=== PATIENT | female | born 1980 | race Caucasian/White ===

== ENCOUNTER 2024-01-14 19:29 | Outpatient (REF) | payer BC, SELFPAY | END 2024-01-14 19:30 | disposition home or self-care (01) | LOC: LAB 19:29 | PROVIDERS: Visit Provider Obstetrics & Gynecology | DX: Z01.419 Encounter for gynecological examination (general) (routine) without abnormal findings (principal) | CPT/HCPCS: 88175 ==

== ENCOUNTER 2025-02-03 19:27 | Outpatient (REF) | payer SELFPAY ==
--- OUTSIDE RECORDS SUMMARY | 2025-02-03 19:30 | XMS_ITS | CCD ---
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 Medications List tirzepatide (Mounjaro 15 mg/0.5 mL subcutaneous solution) Contact prescribing physician if questions or concerns acetaminophen (Tylenol) aspirin (aspirin 81 mg Oral EC Tab) docusate (Colace) fluoxetine (FLUoxetine 40 mg Cap) hydrochlorothiazide (hydrochlorothiazide 25 mg Tab) ibuprofen (ibuprofen 800 mg Tab) methocarbamol oxycodone Procedures Performed Carpal tunnel syndrome of right wrist (2011), Cholecystectomy (2005), Arthroscopy of knee (1995), Reconstruction of anterior abdominal wall, Repair of ventral hernia. Discharge Vitals Heart Rate (Peripheral) 78 Respiratory Rate 16 Blood Pressure 133/84 Height 162 cm Height 64 in Weight 99.4 kg Weight 218.68 lb BMI 37.88 What to do next Scheduled Follow-Up Appointments Saturday 10:15 AM EST With: Erasto Smith MD Where: [facility] Medicine [place] [facility] Medicine Office/Clini c Noteon 11-04-2023 Family Medicine Office/Clinic Note Family Medicine Office/Clinic Note HPI Staff Jennifer is a 43 year old female presenting for medication refill Patient is here for follow up on hypertension. How often are you checking your blood pressure? Couple times a week What are your average readings? _120s over 70s Follow up for Mental Status: Medication adherence- Yes, takes medication as prescribed Medication refill needed: _ Suicidal thoughts-Not at this time Most recent JESSICA: 3 Most recent PHQ: 8 Patient is here for follow up on Diabetes. How often are you checking your blood sugars? 0 times per day What are your average readings? NA Paresthesias, Ulcerations or sores? no Lisinopril, aspirin, statin therapy? Yes Foot Exam: NA Eye Exam: last year. Last A1c: Hgb A1C %: 5.1 % (01/07/23 10:28:00) 4.6 recently @ [facility] (getting records now) Questions/Concerns: Refills on meds History of Present Illness - Here for follow up and discuss meds - Pt recently had a hernia repair. - Pain is improving. Review of Systems PHQ Score Initial Depression Screen Score: 0 SCORE Physical Exam Vitals & Measurements HR: 78(Peripheral) RR: 16 BP: 133/84 HT: 64 in HT: 162 cm WT: 99.4 kg WT: 218.68 lb BMI: 37.88 General: alert, no acute distress ENMT: oral mucosa moist, Cardiovascular: regular rate and rhythm, normal peripheral perfusion Respiratory: Lungs CTA, respirations non labored Extremities: no deformity, no trauma Neurological: oriented x 4, LOC appropriate for age, CN II-XII intact, motor strength equal & normal bilaterally, speech normal Abdomen: Soft, Nontender, Non-distended, + BS, Belly Binder in place. Suture sites are healing well. Assessment/Plan 1. Type 2 diabetes mellitus without complication, without long-term current use of insulin (E11.9: Type 2 diabetes mellitus without complications) - Doing well with the mounjaro. - At goal. 2. Primary hypertension (I10: Essential (primary) hypertension) - At goal. - Continue on HCTZ 3. Depression with anxiety (F41.8: Other specified anxiety disorders) - At goal. - Continue meds as before 4. H/O hernia repair (Z98.890: Other specified postprocedural states) - Doing well. - Pain is controlled - Suture sites are healing well. Personal history of other diseases of the digestive system (Z87.19: Personal history of other diseases of the digestive system) Orders: lidocaine topical, See Instructions, 30 patch(es), Refill(s) 0, USE 1 PATCH EXTERNALLY ONCE DAILY LEAVE ON FOR 12 HOURS THEN REMOVE FOR 12 HOURS, [facility], 162, cm, 09/18/22 9:06:00 EDT, Height/Length Dosing, 103, kg, 09/18/22 9:06:00 EDT, Weight Dosing tirzepatide, See Instructions, INJECT 1 SYRINGE SUBCUTANEOUSLY ONCE A WEEK, # 12 mL, Refills(s) 1, [facility], 162, cm, 11/04/23 10:01:00 EDT, Height/Length Dosing, 99.4, kg, 11/04/23 10:01:00 EDT, Weight Dosing Follow-up No qualifying data available Patient Education Hypertension, Adult Problem List/Past Medical History Ongoing Depression with anxiety H/O hernia repair Primary hypertension Type 2 diabetes mellitus without complication, without long-term current use of insulin Historical No qualifying data Procedure/Surgical History Carpal tunnel syndrome of right wrist (2011), Cholecystectomy (2005), Arthroscopy of knee (1995), Reconstruction of anterior abdominal wall, Repair of ventral hernia. Medications aspirin 81 mg Oral EC Tab, 81 mg= 1 tab(s), Oral, Daily Colace, 100 mg, Oral, BID, PRN FLUoxetine 40 mg Cap, See Instructions hydrochlorothiazide 25 mg Tab, See Instructions ibuprofen 800 mg Tab, 800 mg= 1 tab(s), Oral, q6hr methocarbamol, 500 mg, Oral, TID, PRN Mounjaro 15 mg/0.5 mL subcutaneous solution, See Instructions, 1 refills oxycodone, 5 mg, Oral, q6hr, PRN Tylenol, 1000 mg, Oral, q6hr, PRN Allergies Flagyl (Hives) penicillin (Hives) Social History Alcohol - Low Risk, 09/04/2022 Current, 1-2 times per month, 09/04/2022 Substance Abuse - Denies Substance Abuse, 01/08/2022 Household substance abuse concerns: No., 09/04/2022 Tobacco - Denies Tobacco Use, 09/04/2022 Never (less than 100 in lifetime) Tobacco Use:. Never Smokeless Tobacco Use:. Household tobacco concerns: No., 11/04/2023 Family History Diabetes mellitus type 2: Mother and Father. Stroke: Mother. Immunizations Vaccine Date Status Comments influenza virus vaccine, inactivated - Not Given Postpone due to refusal influenza virus vaccine, inactivated - Not Given Patient Refuses SARS-CoV-2 (COVID-19) mRNA BNT-162b2 vax 08/02/2020 Recorded SARS-CoV-2 (COVID-19) mRNA-1273 vaccine 07/05/2020 Recorded diphtheria/pertussis , acel/tetanus adult 06/02/2020 Recorded influenza virus vaccine, inactivated 02/17/2014 Recorded Normal [facility] Comment on above: Result Comment: Elec tronically Signed By: Erasto Smith MD\.br\Date and Time Signed: 11/04/23 10:17 EDT [facility] 10-25-19 [facility] Case Information Case Priority: None Programs: -- Referral Source: Stand Grinder Referral Reason: Care coordination Case Type: Transition Care Management Risk Score: -- Case Status: Enrolled (October 25, 2023) Date Assigned: October 25, 2023 Assigned By: Donald Najera Date Enrolled: October 25, 2023 Assigned Primary Personnel: Donald Najera Assigned Secondary Personnel: -- Case Physician: Erasto Smith MD Problems Ongoing Depression with anxiety Primary hypertension Type 2 diabetes mellitus without complication, without long-term current use of insulin Historical No qualifying data Procedure/Surgical History Carpal tunnel syndrome of right wrist (2011), Cholecystectomy (2005), Arthroscopy of knee (1995). Home Medications aspirin 81 mg Oral EC Tab, 81 mg= 1 tab(s), Oral, Daily FLUoxetine 40 mg Cap, See Instructions hydrochlorothiazide 25 mg Tab, See Instructions hydrochlorothiazide 25 mg Tab, See Instructions ibuprofen 800 mg Tab, 800 mg= 1 tab(s), Oral, q6hr lidocaine Top 5% film Patch, See Instructions, Not taking Mounjaro 15 mg/0.5 mL subcutaneous solution, See Instructions Allergies Flagyl (Hives) penicillin (Hives) Social History Alcohol - Low Risk, 09/04/2022 Current, 1-2 times per month, 09/04/2022 Substance Abuse - Denies Substance Abuse, 01/08/2022 Household substance abuse concerns: No., 09/04/2022 Tobacco - Denies Tobacco Use, 09/04/2022 Never (less than 100 in lifetime) Tobacco Use:. Never Smokeless Tobacco Use:. Household tobacco concerns: No., 01/07/2023 Family History Diabetes mellitus type 2: Mother and Father. Stroke: Mother. Screenings and Assessments 10/25/23 10:52:00 Result Name Value Comment Phone Call Monitoring Consent Agreed to continue call Phone Verification Patient Information Full name, street address and date of verified CM Program Enrollment Provides verbal consent for enrollment Goals and Interventions Care Plan Progress Note Admit Date: 10/18/23 [facility] Date of Discharge: 10/22/23 Follow-up appointment scheduled? no, heading up to [facility] now for Surgical f/u, will contact office after to arrange for PCP f/u Did you understand your discharge instructions? yes Are you able to follow them? yes Did you receive new medications? yes, Colace 100 mg BID PRN, acetaminophen 500 2 tabs q6hr PRN, methocarbamol 500 mg TID PRN, oxycodone 5 mg q6hr PRN, HCTZ was stopped (d/t low BP 80/60- per pt) Have you filled the Rx's? yes Are you taking them as prescribed? yes Are you having difficulty eating or swallowing your pills? no Are you having any stomach upset, diarrhea or constipation? no How are you sleeping?'I'm not sleeping' reports gas pains from surgery Are you having any pain? reports gas pains from surgery Do you have everything you need at home to care for yourself? yes Do you have Home Health? no Spoke with patient for initial Transitional Care Management Program call. Readmission risk not available. Reviewed discharge instructions and diagnosis of: ventral hernia repair, s/p repair of ventral hernia, acute post op pain, electrolyte imbalance, obesity, HTN, anxiety, DM, BOBY.Patient underwent laparoscopic ventral hernia repair with mesh on 10/17. Medications reviewed and updated with patient, d/c list, and ehr. PCP is currently out of office, no POV scheduled at this time. Medication reconciliation will need to be completed at OV. Reviewed purpose and side effects of new medications with patient. Patient states she is doing 'horrible.' Notes she tried to be a 'badass' and not take any pain medication following discharge and now she is paying for it. Patient is currently on her way now to follow up with surgeon and discuss pain. Patient reports she has some gas pains from anesthesia as well. Reports feeling bloated. She did try gas x and that was not helpful. Patient reports she had normal BM today. Patient notes other than gas pain, she doesn't have pain from the actual surgery. Denies any issues with urinary system. No fever or chills to report. Comfort measures for good night sleep discussed. Patient notes 7 'holes' from lap surgery that are 'glued shut.' Denies any drainage, seepage, or open areas. Patient has 1 DELLA drain intact, anticipating will be removed today. 1 DELLA drain was removed prior to d/c, patient reports incision area is glued shut. Reports no drainage, seepage, or open areas. Reports BP has been running 'one-teens/ 60's.' She is not taking her HCTZ per d/c instruction. She notes slight swelling in BLE. Encouraged to continue to monitor and when to report to provider. Sodium restriction and elevation reviewed. Patient states she will see how today's appointment goes with surgery and then call to arrange follow up with PCP. CN explained TCM program and gave CN contact number. Patient denies any further questions or concerns. Communication Events Date: October 24, (more content not included)... Normal [facility] HbA1c (Bld)on 10-04-2023 Average glucose Estimated from glycated hemoglobin (Bld) [Mass/Vol] 88 mg/dL [facility] Comment on above: eAG: (Estimated aver age glucose) is a calculated value from HgbA1c and is medical detail representative of the average blood glucose level in the last 2-3 month period. HbA1c (Bld) [Mass fraction] 4.7 % 4.3 - 5.6 % [facility] Comment on above: [place] Diabetes As sociation guidelines indicate that patients with HgbA1c in the range 5.7-6.4% are at increased risk for development of diabetes, and intervention by lifestyle modification may be beneficial. HgbA1c greater or equal to 6.5% is considered diagnostic of diabetes. [facility] Pre-Certification Formon Pre-Certification Form [id number]# 1.00TIFF Normal [facility] Consultation Noteon 09-12-19 Consultation Note [id number]# 1.00TIFF Normal [facility] CT Abdomen and Pelvis WO con traston 07-01-2023 [facility] CHEMISTRYOrdered By: SYSTEM SYSTEM on 01-07-2023 TSH Qn 2.73 m[IU]/L Normal 0.34 - 5.60 mcIU/mL [facility] Albumin [Mass/Vol] 4.1 g/dL Normal 3.3 - 5.0 gm/dL [facility] Albumin/Globulin [Mass ratio] 1.1 {ratio} Normal 1.1 - 2.2 [facility] ALP [Catalytic activity/Vol] 41 [iU]/d Normal 21 - 98 Int._Unit/L [facility] ALT No additional P-5'-P [Catalytic activity/Vol] 14 [iU]/d Normal 6 - 46 Int._Unit/L [facility] Anion gap [Moles/Vol] 10 mmol/L Normal 6 - 16 mEq/L [facility] AST [Catalytic activity/Vol] 18 [iU]/d Normal 5 - 43 Int._Unit/L [facility] Bilirubin [Mass/Vol] 0.8 mg/dL Normal 0.0 - 1 .1 mg/dL [facility] Calcium [Mass/Vol] 9.1 mg/dL Normal 8.9 - 11. 1 mg/dL [facility] Chloride [Moles/Vol] 105 mmol/L Normal 101 - 1 11 mmol/L [facility] Cholesterol [Mass/Vol] 159 mg/dL Normal 120 - 200 mg/dL [facility] Cholesterol in HDL [Mass/Vol] 46 mg/dL Invalid Interpretation Code [facility] Cholesterol in LDL [Mass/Vol] 97 mg/dL Normal <=129mg/dL [facility] Cholesterol in VLDL [Mass/Vol] 12 mg/dL Normal 7 - 40 mg/dL [facility] CO2 [Moles/Vol] 26 mmol/L Normal 21 - 31 mmol/L [facility] Creatinine [Mass/Vol] 0.7 mg/dL Normal 0.5 - 1.3 mg/dL [facility] GFR/1.73 sq M.predicted among non-blacks MDRD (S/P/Bld) [Vol rate/Area] 110 mL/min/1.73 m2 Normal >=59mL/min/1 .73 m2 [facility] Globulin (S) [Mass/Vol] 3.7 g/dL Normal 1.4 - 4.0 gm/dL [facility] Glucose [Mass/Vol] 89 mg/dL Normal 55 - 199 mg/dL [facility] Potassium [Moles/Vol] 3.7 mmol/L Normal 3.5 - 5.3 mmol/L [facility] Protein [Mass/Vol] 7.8 g/dL Normal 6.0 - 7.8 gm/dL [facility] Sodium [Moles/Vol] 137 mmol/L Normal 135 - 145 mmol/L [facility] Triglyceride [Mass/Vol] 61 mg/dL Normal <=149mg/dL [facility] Urea nitrogen [Mass/Vol] 17 mg/dL Normal 5 - 21 mg/dL [facility] Urea nitrogen/Creatinine [Mass ratio] 24 mg/mg High 10 - 20 [facility] CHEMISTRYOrdered By: Virginia Alfaro on 01-07-2023 Albumin DL <= 20 mg/L (U) [Mass/Vol] 10.6 microgram/mL Normal 0.0 - 19.0 mcg/mL [facility] Albumin Elph (U) [Mass fraction] mg/dL Invalid Interpretation Code [facility] Creatinine (U) [Mass/Vol] 200.3 mg/dL Invalid Interpretation Code [facility] U Prot/Creat Ratio [facility] Invalid Interpretation Code 0.00 - 200.00 [facility] CHEMISTRYOrdered By: Cristopher rosario on 01-07-2023 HbA1c (Bld) [Mass fraction] 5.1 % Normal <=5.9% [facility] HEMATOLOGYOrdered By: SYSTEM SYSTEM on 01-07-2023 Basophils/100 WBC (Bld) 1.0 % Normal 0.0 - 2.0 % [facility] Basophils/Leukocytes Auto (Bld) [Pure # fraction] 0.1 E9/L Normal 0.0 - 0.2 E9/L [facility] Eosinophils/100 WBC (Bld) 2.9 % Normal 0.0 - 8.0 % [facility] Eosinophils/Leukocyte s Auto (Bld) [Pure # fraction] 0.2 E9/L Normal 0.0 - 0.5 E9/L [facility] Lymphocytes/100 WBC (Bld) 25.8 % Normal 14.0 - 50.0 % [facility] Lymphocytes/Leukocyte s Auto (Bld) [Pure # fraction] 1.9 E9/L Normal 1.0 - 4.0 E9/L [facility] Monocytes/100 WBC (Bld) 9.7 % Normal 4.0 - 14.0 % [facility] Monocytes/Leukocytes Auto (Bld) [Pure # fraction] 0.7 E9/L Normal 0.2 - 1.0 E9/L [facility] Neutrophils/100 WBC (Bld) 60.6 % Normal 36.0 - 75.0 % [facility] Neutrophils/Leukocyte s Auto (Bld) [Pure # fraction] 4.5 E9/L Normal 2.0 - 7.5 E9/L [facility] HEMATOLOGYOrdered By: Cristopher Hi on 01-07-2023 Erythrocyte distribution width (RBC) [Ratio] 13.5 % Normal 10.9 - 14.2 % [facility] Hematocrit (Bld) [Volume fraction] 41.8 % Normal 34.0 - 46.0 % [facility] Hemoglobin (Bld) [Mass/Vol] 14.1 g/dL Normal 12.0 - 16.0 gm/dL [facility] MCH (RBC) [Entitic mass] 30.3 pg Normal 27.0 - 34.0 pg [facility] MCHC (RBC) [Mass/Vol] 33.8 g/dL Normal 31.4 - 36.0 gm/dL [facility] MCV (RBC) [Entitic vol] 89.6 fL Normal 80.0 - 100.0 fL [facility] Platelet mean volume (Bld) [Entitic vol] 7.8 fL Normal 6.4 - 10.8 fL [facility] Platelets (Bld) [#/Vol] 355.0 E9/L Normal 150.0 - 500.0 E9/L [facility] RBC (Bld) [#/Vol] 4.7 E12/L Normal 4.3 - 5.9 E12/L [facility] WBC corrected for nucl RBC Auto (Bld) [#/Vol] 7.5 E9/L Normal 4.0 - 11.0 E9/L [facility] Measles (Rubeola) Antibody, IgGon 09-28-2022 Measles, Rubeola, Ab IgG >300.0 Normal [facility] Comment on above: Result Comment: INTE RPRETIVE INFORMATION: Measles (Rubeola) Antibody, IgG 13.4 AU/mL or less........ Negative - No significant level of detectable measles (rubeola) IgG antibody. 13.5-16.4 AU/mL .......... Equivocal - Repeat testing in 10-14 days may be helpful. 16.5 AU/mL or greater .... Positive - IgG antibody to measles (rubeola) detected which may indicate a current or past exposure/immunization to measles (rubeola). The best evidence for current infection is a significant change on two appropriately timed specimens, where both tests are done in the same laboratory at the same time. Performed By: [employer] [address] [place] [id number] Service Delivery Consultant: Senthil Holt MD, PhD Mumps Virus Ab, IgGon 2022 Mumps Virus Ab, IgG 31.8 AU/mL Normal [facility] Comment on above: Result Comment: INTE RPRETIVE INFORMATION: Mumps Ab, IgG by [facility] 8.9 AU/mL or less .... Negative - No significant level of detectable IgG mumps virus antibody 9.0-10.9 AU/mL ....... Equivocal - Repeat testing in 10-14 days may be helpful 11.0 AU/mL or greater: Positive - IgG antibody to mumps virus detected, which may indicate a current or past exposure/ immunization to mumps virus. The best evidence for current infection is a significant change on two appropriately timed specimens, where both tests are done in the same laboratory at the same time. Performed By: [employer] [address] [place] [address] Service Delivery Consultant: Senthil Holt MD, PhD VZ Immunityon 09-28-2022 VZ Immunity 1.65 Normal >1.09 [facility] Comment on above: Result Comment: Interpretation: IMMUNE Reference Range: <0.91 Not Immune 0.91-1.09 Equivocal >1.09 Immune [facility] [address] [place], [place] [id number] ([phone] Rubella Ab, IgGon 09-27-2022 Rubella Ab, IgG 129.2 IU/mL Normal [facility] Comment on above: Result Comment: Deanne ent's result indicates immunity. Default Normal Ranges >=10 Presumed Immune <10 Presumed Not immune Performed By: #### R UBBERTHA #### [facility] [address] [place] [address] BASIC METABOLIC PANELon 05- Anion gap [Moles/Vol] 12 mmol/L Normal 10-20 [facility] Comment on above: Performed By: #### Lukas KYLE HCG, CH8 ####S PATHOLOGY [id number] [place], [place], Calcium [Mass/Vol] 8.8 mg/dL Normal 8.4-10.4 [facility] Comment on above: Performed By: #### Lukas KYLE HCG, CH8 ####[facility] [id number] [place], [place], Chloride [Moles/Vol] 105 mmol/L Normal 97-111 [facility] Comment on above: Performed By: #### Lukas KYLE HCG, CH8 ####[facility] [id number] [place], [place], CO2 [Moles/Vol] 27 mmol/L Normal 21-30 [facility] System Comment on above: Performed By: #### E SAROJ HCG, CH8 ####[facility] [id number] [place], [place], Creatinine [Mass/Vol] 0.54 mg/dL Normal 0.50-1.10 [facility] Comment on above: Performed By: #### CELIO JANE, CH8 ####[facility] [id number] [place], [place], ESTIMATED GFR (CKD-EPI) 117 mL/min/1.73sqm Normal >=60 [facility] Comment on above: Result Comment: 2020 CKD EPI Equation using Creatinine without Race Comment: Estimated glomerular filtration rate (eGFR) is calculated without a race coefficient. Values should be interpreted in the context of the patient's full clinical presentation. Reference: 1. Emigdio C, Anita M, Aislinn SANDERS, et al.. A Unifying Approach for GFR Estimation: Recommendations of the NKF-ASN Task Force on Reassessing the Inclusion of Race in Diagnosing Kidney Disease. [place] Journal of Kidney Diseases 2021;79(2):268-88.e1. 2. N Engl J Med 1 Vol. 385 Issue 19 Pages 4584-3552 Performed By: #### CELIO JANE CH8 ####S PATHOLOGY [id number] [place], [place], Glucose [Mass/Vol] 120 mg/dL High 68-110 [facility] Comment on above: Performed By: #### CELIO JANE, CH8 ####[facility] [id number] [place], [place], Potassium [Moles/Vol] 3.3 mmol/L Normal 3.3-5.3 [facility] Comment on above: Performed By: #### CELIO JANE, CH8 ####[facility] [id number] [place], Sodium [Moles/Vol] 141 mmol/L Normal 135-148 [facility] Comment on above: Performed By: #### CELIO JANE, CH8 ####[facility] [id number] [place], Urea nitrogen [Mass/Vol] 16 mg/dL Normal 8-22 [facility] Comment on above: Performed By: #### E SAROJ, [facility], CH8 ####[facility] [id number] [place], [id number] Basic metabolic 2000 panelon 09-02-2022 Anion gap [Moles/Vol] 12 mmol/L 10 - 20 [facility] Calcium [Mass/Vol] 8.8 mg/dL 8.4 - 10. 4 mg/dL [facility] Chloride [Moles/Vol] 105 mmol/L 97 - 11 1 mmol/L [facility] CO2 [Moles/Vol] 27 mmol/L 21 - 30 mmol/L [facility] Creatinine [Mass/Vol] 0.54 mg/dL 0.50 - 1.10 mg/dL [facility] GFR/1.73 sq M.predicted MDRD (S/P/Bld) [Vol rate/Area] 117 mL/min/{1.73_m2} - PINF [facility] Comment on above: 2020 CKD EPI Equatio n using Creatinine without Race Comment: Estimated glomerular filtration rate (eGFR) is calculated without a race coefficient. Values should be interpreted in the context of the patient's full clinical presentation. Reference: 1. Emigdio C, Bajitendra M, Aislinn DC, et al.. A Unifying Approach for GFR Estimation: Recommendations of the NKF-ASN Task Force on Reassessing the Inclusion of Race in Diagnosing Kidney Disease. [place] Journal of Kidney Diseases 2021;79(2):268-88.e1. 2. N Engl J Med 2020 Vol. 385 Issue 19 Pages 4601-9008 Glucose [Mass/Vol] 120 mg/dL High 68 - 110 mg/dL [facility] Interpretation and review of laboratory results Abnormal [facility] Potassium [Moles/Vol] 3.3 mmol/L 3.3 - 5.3 mmol/L [facility] Sodium [Moles/Vol] 141 mmol/L 135 - 148 mmol/L [facility] Urea nitrogen [Mass/Vol] 16 mg/dL 8 - 22 mg/dL [facility] CBC WITH DIFFERENTIALon 08-20 Basophils (Bld) [#/Vol] 0.06 10*3/uL Normal 0.00-0.20 [facility] Comment on above: Performed By: #### C BCDSAT ####[facility] [id number] [place], Basophils/100 WBC (Bld) 0.8 % Normal <=1.9 [facility] Comment on above: Performed By: #### C BCDSAT ####[facility] [id number] [place], Eosinophils (Bld) [#/Vol] 0.29 10*3/uL Normal 0.00-0.70 [facility] Comment on above: Performed By: #### C BCDSAT ####[facility] [id number] [place], Eosinophils/100 WBC (Bld) 3.6 % Normal 0.1-4.0 [facility] Comment on above: Performed By: #### C BCDSAT ####[facility] [id number] [place], Erythrocyte distribution width (RBC) [Ratio] 13.5 % Normal 11.5-14.5 [facility] Comment on above: Performed By: #### C BCDSAT ####[facility] [id number] [place], Hematocrit (Bld) [Volume fraction] 37.4 % Normal 36.0-46.0 [facility] Comment on above: Performed By: #### C BCDSAT ####[facility] [id number] [place], Hemoglobin (Bld) [Mass/Vol] 12.9 g/dL Normal 12.0-15.0 [facility] Comment on above: Performed By: #### C BCDSAT ####[facility] [id number] [place], Lymphocytes (Bld) [#/Vol] 2.16 10*3/uL Normal 1.00-4.80 [facility] Comment on above: Performed By: #### C BCDSAT ####[facility] [id number] [place], Lymphocytes/100 WBC (Bld) 26.4 % Normal 24.0-44.0 [facility] Comment on above: Performed By: #### C BCDSAT ####[facility] [id number] [place], MCH (RBC) [Entitic mass] 29.7 pg Normal 26.0-34.0 The [facility] Comment on above: Performed By: #### C BCDSAT ####[facility] [id number] [place] [address], MCHC (RBC) [Mass/Vol] 34.4 g/dL Normal 32.0-35.9 The [facility] Comment on above: Performed By: #### C BCDSAT ####[facility] [id number] [place] [address], MCV (RBC) [Entitic vol] 87 fL Normal 80-100 The [facility] Comment on above: Performed By: #### C BCDSAT ####[facility] [id number] [place] [address], MONOCYTE DISTRIBUTION WIDTH 20 Normal <=20 [facility] Comment on above: Performed By: #### C BCDSAT ####[facility] [id number] [place] [address], Monocytes (Bld) [#/Vol] 0.84 10*3/uL Normal 0.20-1.00 The [facility] Comment on above: Performed By: #### C BCDSAT ####[facility] [id number] [place] [address], Monocytes/100 WBC (Bld) 10.3 % Normal 2.0-11.0 The [facility] Comment on above: Performed By: #### C BCDSAT ####[facility] [id number] [place] [address], Neutrophils (Bld) [#/Vol] 4.81 10*3/uL Normal 1.50-8.00 The [facility] Comment on above: Performed By: #### C BCDSAT ####[facility] [id number] [place] [address], Neutrophils/100 WBC (Bld) 59.0 % Normal 31.0-76.0 [facility] Comment on above: Performed By: #### Harpreet CORRALAT ####[facility] [id number] [place], Platelet mean volume (Bld) [Entitic vol] 7.4 fL Low 7.5-11.2 [facility] Comment on above: Performed By: #### Harpreet CORRALAT ####[facility] [id number] [place], Platelets (Bld) [#/Vol] 381 10*3/uL Normal 150-400 [facility] Comment on above: Performed By: #### Harpreet CORRALAT ####[facility] [id number] [place],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 factors are under your control, including: ? Smoking. ? Not getting enough exercise or physical activity. ? Being overweight. ? Having too much fat, sugar, calories, or salt (sodium) in your diet. ? Drinking too much alcohol. Other risk factors include: ? Having a personal history of heart disease, diabetes, high cholesterol, or kidney disease. ? Stress. ? Having a family history of high blood pressure and high cholesterol. ? Having obstructive sleep apnea. ? Age. The risk increases with age. What are the signs or symptoms? High blood pressure may not cause symptoms. Very high blood pressure (hypertensive crisis) may cause: ? Headache. ? Fast or irregular heartbeats (palpitations). ? Shortness of breath. ? Nosebleed. ? Nausea and vomiting. ? Vision changes. ? Severe chest pain, dizziness, and seizures. How is this diagnosed? This condition is diagnosed by measuring your blood pressure while you are seated, with your arm resting on a flat surface, your legs uncrossed, and your feet flat on the floor. The cuff of the blood pressure monitor will be placed directly against the skin of your upper arm at the level of your heart. Blood pressure should be measured at least twice using the same arm. Certain conditions can cause a difference in blood pressure between your right and left arms. If you have a high blood pressure reading during one visit or you have normal blood pressure with other risk factors, you may be asked to: ? Return on a different day to have your blood pressure checked again. ? Monitor your blood pressure at home for 1 week or longer. If you are diagnosed with hypertension, you may have other blood or imaging tests to help your health care provider understand your overall risk for other conditions. How is this treated? This condition is treated by making healthy lifestyle changes, such as eating healthy foods, exercising more, and reducing your alcohol intake. You may be referred for counseling on a healthy diet and physical activity. Your health care provider may prescribe medicine if lifestyle changes are not enough to get your blood pressure under control and if: ? Your systolic blood pressure is above 130. ? Your diastolic blood pressure is above 80. Your personal target blood pressure may vary depending on your medical conditions, your age, and other factors. Follow these instructions at home: Eating and drinking ? Eat a diet that is high in fiber and potassium, and low in sodium, added sugar, and fat. An example of this eating plan is called the DASH diet. DASH stands for Dietary Approaches to Stop Hypertension. To eat this way: ? Eat plenty of fresh fruits and vegetables. Try to fill one half of your plate at each meal with fruits and vegetables. ? Eat whole grains, such as whole-wheat pasta, brown rice, or whole-grain bread. Fill about one fourth of your plate with whole grains. ? Eat or drink low-fat dairy products, such as skim milk or low-fat yogurt. ? Avoid fatty cuts of meat, processed or cured meats, and poultry with skin. Fill about one fourth of your plate with lean proteins, such as fish, chicken without skin, beans, eggs, or tofu. ? Avoid pre-made and processed foods. These tend to be higher in sodium, added sugar, and fat. ? Reduce your daily sodium intake. Many people with hypertension should eat less than 1,500 mg of sodium a day. ? Do not drink alcohol if: ? Your health care provider tells you not to drink. ? You are , may be , or are planning to become . ? If you drink alcohol: ? Limit how much you have to: ? 0?1 drink a day for women. ? 0?2 drinks a day for men. ? Know how much alcohol is in your drink. In the [place] one drink equals one 12 oz bottle of beer (355 mL), one 5 oz glass of wine (148 mL), (more content not included)... [facility] 10-25-2023 Nurse Note What is the reason for your visit today? Post Op Who is your referring physician? See Coello Are you having poor oral intake? NO Have you had unintentional weight loss of 15 lbs/7 Kg in the last 3-6 months? NO Bowels: regular Wound: clean & dry Temperature: No Drains: Yes DELLA drain [facility] 10-25-2023 Nurse Note What is the reason for your visit today? Post Op Who is your referring physician? See Coello Are you having poor oral intake? NO Have you had unintentional weight loss of 15 lbs/7 Kg in the last 3-6 months? NO Bowels: regular Wound: clean & dry Temperature: No Drains: Yes DELLA drain documented in this encounter [facility] 10-25-2023 History of Present illness Narrative [facility] Clinic Date: October 25, 2023 Jennifer Gleason 43 year old female CHIEF COMPLAINT: Patient presents for drain removal. HPI: Here for drain removal after robotic bilateral TAR, incisional hernia repair and implantation of 30 cm x 30 cm Prolene mesh on 10/18/[address] Coello. Patient has [address] at her LLQ with serosanguinous fluid and output of 20-30 ml/day. Pain: Having moderate abdominal pain and back pain. Taking oxycodone, Robaxin, Tylenol and Ibuprofen throughout the day Incisional Drainage: Denies Incisional Erythema: Denies Fever/Chills: Denies Increased Heart Rate: Denies Constipation: Denies Diarrhea: Denies Nausea/Vomiting: Denies Difficulty Voiding: Denies Decreased Urine Output: Denies Shortness of Breath: Denies Cough / Wheezing: Denies Calf/Thigh pain or swelling: Bilateral leg swelling. No pain or redness Current Diet: Regular. Present Activity level: Walking around the house Surgery Date and Procedure: 10/18/2023 1. Left myofascial advancement flap 2. Right myofascial advancement flap 3. Robotic incisional hernia repair with mesh Randomized Controlled Trial: Robotic versus Open Ventral Hernia Repair (ROVHR) Trial Current Medications: Current Outpatient Medications Medication Sig Dispense Refill lidocaine (SALONPAS) 4 % patch Apply 1 Patch as directed once daily for 7 days. 7 Patch 0 acetaminophen (TYLENOL) 500 mg tablet Take 2 tablets by mouth every 6 hours as needed for pain. docusate sodium (COLACE) 100 mg capsule Take 1 capsule by mouth two times a day as needed for constipation. methocarbamol (ROBAXIN) 500 mg tablet Take 1 tablet by mouth three times a day as needed (Muscle spasms) for up to 4 days. 12 tablet 0 oxyCODONE IR (ROXICODONE) 5 mg immediate release tablet Take 1 tablet by mouth every 6 hours as needed for pain for up to 5 days. 15 tablet 0 aspirin 81 mg chewable tablet Biotin 10 mg tab FLUoxetine (PROZAC) 40 mg capsule Take 1 capsule by mouth every afternoon. multivit-minerals/folic acid (MULTIVITAMIN GUMMIES ORAL) LORENAUNJARO 15 mg/0.5 mL pen injector inject 1 syringe subcutaneously once a week No current facility-administered medications for this visit. REVIEW OF SYSTEMS: CONSTITUTIONAL: Patient denies fevers, chills, sweats CARDIOVASCULAR: Patient denies chest pains, palpitations RESPIRATORY: No dyspnea on exertion, no wheezing or cough. GI: No diarrhea. No constipation. No nausea/vomiting. MUSCULOSKELETAL: No new myalgias or arthralgias. DERMATOLOGIC: Patient denies any rashes or skin changes. PHYSICAL EXAM: BP (!) 119/40 Pulse 78 Temp 36.8 C (98.2 F) (Temporal) Ht 162.6 cm (5' 4 ) Wt 105.7 kg (233 lb) LMP 09/27/2023 (Exact Date) BMI 39.99 kg/m GENERAL: No apparent distress. Pt is alert and oriented x3. LUNGS: Lungs clear and equal. No wheezing HEART: Regular rate and rhythm without murmur. No leg edema ABDOMEN: Soft, nontender, and nondistended. Positive bowel sounds. LLQ Della drain. EXTREMITIES: Without any cyanosis, clubbing, rash, lesions or edema. INCISIONS: Clean, dry, intact, well approximated. No s/s of infection. SURGICAL PATHOLOGY: N/A ASSESSMENT/PLAN: ASSESSMENT/PLAN: 1. Postoperative visit - ICD9: V58.49, ICD10: Z48.89 -Moderate abdominal pain with back pain -Continue Ibuprofen and Tylenol PRN -Della drain removed without difficulty - Refilled OXYCODONE 5 MG TABLET - Refilled METHOCARBAMOL 500 MG TABLET -Follow up SaturdayNovember 11 10:00 AM Betsy Rodgers, SANDER, AUREA-LUI October 25, 2023 documented in this encounter [facility] 10-04-2023 Instructions John Li APRN.CNP - 10/04/2023 10:25 AM EDT PATIENT PREOPERATIVE INSTRUCTIONS Betsy Rodgers APRN.C* has scheduled you for your procedure at this surgery center: [facility] Scheduling Office: [phone] --[address] [place] [address]. Please read below carefully for your personalized instructions. Dietary Restrictions: - No solid food after midnight. - You may have 12 ounces of clear liquids (water, clear juices such as apple juice or gatorade, carbonated beverages, clear tea, black coffee, jello) until 2 hours before scheduled arrival at facility. Medications: Unless instructed differently below, stay on all of your medications until your surgery. If you start any new medications after today's visit, please contact your surgeon. Pre-Surgery Med Instructions Medication Instructions aspirin 81 mg chewable tablet Stop 7 days before surgery Biotin 10 mg tab Stop 14 days before surgery FLUoxetine (PROZAC) 40 mg capsule Take the day of surgery with a small sip of water hydroCHLOROthiazide 12.5 mg capsule Do not take the day of surgery multivit-minerals/folic acid (MULTIVITAMIN GUMMIES ORAL) Stop 14 days before surgery MOUNJARO 15 mg/0.5 mL pen injector Hold scheduled dose 1 week prior to surgery. Patient states holding for surgery, last dose taken was on 09/16/23 If you start any new medications after today's visit, please contact the surgeon's office. Blood Thinning Medications: - Stop NSAIDS (Ibuprofen, Advil, Aleve, Motrin, Celebrex, Mobic, etc.) 7 days before surgery, as directed by your surgeon. - Stop Aspirin 7 days before surgery, as directed by your surgeon. - Stop Vitamin E, ALL multi-vitamins, herbals and dietary supplements 14 days before surgery. - You may take Tylenol (Acetaminophen) or any of your pain medications that do not contain aspirin or NSAIDS as needed. Important Reminders: - Candy, mints, and tobacco products are NOT permitted the morning of surgery. - Hearing aids, dentures and glasses may be worn the morning of surgery. - NO jewelry, body piercings, makeup, hairpins or contacts are to be worn the day of surgery. If you develop symptoms such as a fever, cold, or flu, or have other changes to your health within TWO DAYS of scheduled surgery or the morning of surgery, please contact the surgery center above. Personal Belongings: -Please have photo ID and insurance cards. -If you do not have a copy of advance directives on file with us, please bring a copy with you on the day of surgery. - Leave ALL valuables and money at home or with family members. For Outpatient Procedures: - YOU MUST HAVE A RESPONSIBLE CASING MAN TAKE YOU HOME. A SENIOR MARKETING ENGINEER OR BENCH CARPENTER CANNOT BE MADE A RESPONSIBLE CASING MAN. - We recommend that a responsible person stays with you overnight to take care of you. - You cannot stay in a hotel alone after outpatient surgery. You will not be permitted to have your surgery, if you do not have someone to take care of you. Arrival Time for Surgery: - To obtain your arrival time for surgery, call your physician's office the day before your surgery. - If your surgery is scheduled for Saturday, call the Saturday before. Your surgeon s radiology scheduler will tell you what time to call the office. - If you have not reached the departmental radiology scheduler by 5 P.M., call [phone] after 5 P.M. the day before your surgery. Please be aware that emergency situations arise, which may delay or change your surgical time. If this happens, we will notify you as soon as possible and regret any inconvenience. If you already have an Advance Directive, please fax a copy to [phone] or email to for it to be added to your chart. If you do not have an Advance Directive, you can find the appropriate form and more information at [email or web address]. We recommend that you complete the Advance Directive form found on the website and bring it with you the day of your surgery. It can be witnessed and scanned into your chart that day. John Li APRN.CNP documented in this encounter [facility] 10-04-2023 History and physical note HISTORY AND PHYSICAL EXAMINATION SERVICE DATE: 10/04/2023 SERVICE TIME: 10:25 AM PRIMARY CARE PHYSICIAN: Erasto Smith MD Assessment Patient has the following medical conditions which may affect lyudmila-operative course: Obstructive sleep apnea syndrome in adult Reports CPAP compliance HTN (hypertension) Managed with hydroCHLOROthiazide BP this visit 31755 Denies SOB, dizziness, lightheadedness, palpitations, syncope and chest pain Depression Managed with FLUoxetine (PROZAC) Stable and controlled Followed by PCP Anxiety Managed with FLUoxetine (PROZAC) Stable and controlled Followed by PCP Diabetes mellitus (HCC) Managed with MOUNJARO, states holding for surgery last dose taken 09/16/23 Followed by PCP A1C ordered [place] Activity Status Index: METS: Walk indoors, such as around the house (1.75 METs) Do light work around the house, such as dusting or washing dishes (2.70 METs) Take care of self; that is eating, dressing, bathing, using the toilet (2.75 METs) Walk a block or two on level ground (2.75 METs) Do moderate work around the house, such as vacuuming, sweeping floors, or carrying in groceries (3.50 METs) Climb a flight of stairs or walk up a hill (5.50 METs) Do heavy work around the house, such as scrubbing floors, lifting or moving heavy furniture (8.00 METs) DASI Score: 26.95 Patient denies any chest pain or undue shortness of breath with the above physical activity. Clinical Frailty Scale: 3. Well, with treated comorbid disease STOP-Bang Score: BMI greater than 35 kg/m^2 Has a large neck Denies snoring loudly Denies feeling tired, fatigued, or sleepy during the daytime Has not been observed to stop breathing or choking/gasping during sleep Denies having high blood pressure Patient 50 years old or younger STOP-Bang Score: 2 (Reports CPAP compliance ) [id number] Score: Age: <65 Sex: female Hypertension history: Yes Diabetes history: Yes [id number] Score: ARISCAT Score: Age: <=50 Preoperative SpO2: >=96% Preoperative anemia: Yes Duration of surgery: >3 hrs Emergency procedure: No ARISCAT Score: ANESTHESIA FINDINGS: Intubation History: No abnormal airway history Significant Anesthesia Considerations: none Airway History: No abnormal airway history I - PHYSICAL EVALUATION AIRWAY Patient intubated: No. Tracheostomy tube not present Mallampati: II. TM distance: >3 FB. Neck ROM: full ROM without neurological symptoms. Mouth opening: adequate. Short neck: yes. Thick neck: yes Sen present: no Lip Bite Test: I DENTAL Dental findings: teeth intact. Additional comments: Braces upper and lower. II - ANESTHESIA PLAN Anesthetic Plan: other Anesthetic plan additional comments: *PACC/TCI - anesthesia choice. Beta René Monitoring Plan Post Procedure Analgesic Plan Prepared for Surgery: optimally prepared for surgery, pending [see comment]. Type and Screen, CBC, CMP, EKG (ordered), A1C and DOS exam CONSULTS: Patient does not require consults for optimization at this time Planned Anesthetic: other anesthesia choice The Following Tests/Procedures Have Been Initiated: Orders Placed This Encounter Hemoglobin A1C Standing Status: Future Standing Expiration Date: 01/03/2024 Confirm Blood Type Standing Status: Future Standing Expiration Date: 01/03/2024 Order Specific Question: Did Blood Bank direct you to place this order: Answer: No - Presurgical Workflow REASON FOR VISIT: Jennifer Gleason is a 43 year old female who is scheduled for Procedure(s): ROBOTIC LAPAROSCOPIC HERNIA REPAIR VENTRAL INITIAL REDUCIBLE W/MESH GREATER THAN 10cm (N/A) at the request of See Cobb MD for consultation. My final recommendation will be communicated back to the requesting physician by way of shared medical record or letter. Subjective The patient has the following: ACTIVE PROBLEM LIST Anxiety Depression Diabetes Mellitus (Hcc) Htn (Hypertension) Obstructive Sleep Apnea Syndrome in Adult COVID-19 Immunization Status Overdue - Covid-19 Vaccine () Overdue since 12/21/2022 08/02/2020 Imm Admin: COVID-19 original vaccine, age 12+ yr, monovalent ([employer] - PURPLE TOP) 07/05/2020 Imm Admin: COVID-19 original vaccine, full dose, monovalent (MODERNA) Patient reports being fully vaccinated against COVID-19. Patient reports a prior COVID-19 infection, with an infection date of 2019. CHIEF COMPLAINT: Pre-Op Visit HPI: 43 year old female who has Ventral hernia seen for PACC. She endorses s/p lap devante 15 years ago and developed an incisional hernia at her umbilical and epigastric port. It is noted to be fairly large with a lot of bowel within it and about 7 cm. Scheduled for ROBOTIC LAPAROSCOPIC HERNIA REPAIR VENTRAL INITIAL REDUCIBLE W/MESH GREATER THAN 10cm on 10/18/23. Denies any fever, chills, nausea, vomiting, SOB, dizziness, lightheadedness, palpitations, syncope, chest pain or abdominal pain. She has elected to proceed with the surgical procedure. REVIEW OF SYSTEMS: General: No weight loss, malaise or fevers. Neurological: Negative for: seizures, TIA and strokes. Respiratory: Positive for: prior COVID-19 infection, obstructive sleep apnea and CPAP/BiPAP compliant. Date of COVID-19 infection: 2019. Negative for: asthma, bronchitis, COPD, current cough, dyspnea, home oxygen, orthopnea, pneumonia within 6 weeks, tobacco use and URI < 2 weeks. Cardiovascular: Positive for: AICD/PPM and hypertension Negative for: angina, CAD, chest pain, CHF, congenital heart defect, DVT/PE, hyperlipidemia, recent [place] and murmur/valvular heart disease. GI: See HPI. Negative for: abdominal pain, dysphagia, diverticulitis, GERD, hepatitis, liver disease, pancreatitis and ETOH >2 drinks/day. : No history of dysuria, frequency or incontinence, stones or chronic kidney disease. No difficulty urinating, nocturia > 1 time per night or hematuria. 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 Negative for: vaginal bleeding and vaginal discharge. Endocrine: Positive for: diabetes mellitus. Negative for: hyperthyroidism, hypothyroidism and hyperparathyroidism. Hematology: No history of bleeding or clotting disorder. Patient is not taking anti-coagulation or platelet medications. No history of hematological symptoms or problems. Oncology: No history of CA metastasis, chemo within 30 days, or radiotherapy within 90 days. No history of oncological symptoms or problems. Psych: Positive for: anxiety and depression. Negative for: bipolar disorder and drug dependency. Musculoskeletal: Negative for joint pain or swelling, back pain or muscle pain. Skin: Negative for lesions, rash and itching. PAST MEDICAL HISTORY Diagnosis Date Health examination of defined subpopulation CHILDHOOD VAROCELLA Obesity, unspecified No past surgical history on file. No family history on file. Social History Tobacco Use Smoking status: Never Smokeless tobacco: Never Substance Use Topics Alcohol use: Not Currently Comment: SOCIALLY Drug use: No Prior to Admission medications as of 10/04/23 1021 Medication Sig Last Dose Taking aspirin 81 mg chewable tablet Taking Yes Biotin 10 mg tab Taking Yes FLUoxetine (PROZAC) 40 mg capsule Take 1 capsule by mouth every afternoon. Taking Yes hydroCHLOROthiazide 12.5 mg capsule Taking Yes multivit-minerals/folic acid (MULTIVITAMIN GUMMIES ORAL) Taking Yes MOUNJARO 15 mg/0.5 mL pen injector inject 1 syringe subcutaneously once a week Taking Yes No medication comments found. ALLERGIES Allergen Reactions Metronidazole Other: See Comments, Hives Penicillins Hives Objective PHYSICAL EXAM: General: alert and oriented and healthy appearance. Skin: normal color, no rash or lesions. HEENT: pupils equal round and pupils reactive to light. Cardiovascular: regular rate and rhythm, normal S1 and S2, no rub, murmurs, or gallop. Respiratory: normal breath sounds, no wheezes or crackles. No chest wall deformity or tenderness. Abdomen: bowel sounds present and soft. Extremities: no deformity, no edema or tenderness, no joint swelling or clubbing. Neurological: normal cognition and motor skills. Gait normal. No weakness or sensory deficit. PAIN ASSESSMENT: VITALS: BP 129/75 Pulse 69 Temp (Src) 97.4 (Temporal) Ht 5' 4 (1.63m) Wt 222 lb 0.1 oz (100.7kg) SpO2 99% LMP 09/27/2023 BMI 38.09 kg/(m^2). Diagnostic tests reviewed for today's visit: Lab Value Units Date High Low HB No results within date range. HCT No results within date range. WBC No results within date range. PLT No results within date range. NA No results within date range. K No results within date range. GLUC No results within date range. BUN No results within date range. CREAT No results within date range. PTSEC No results within date range. INR No results within date range. APTT No results within date range. ALT No results within date range. AST No results within date range. TBILI No results within date range. TSH No results within date range. Lab Value Units Date High Low HCGQT No results within date range. UHCG No results within date range. HCG, BODY* No results within date range. Lab Value Units Date High Low ABORHD No results within date range. ABSCREEN No results within date range. No results found for: HBA1C No results found for this or any previous visit (from the past 8760 hour(s)). No results found for this or any previous visit (from the past 37325 hour(s)). Instructions Given to Patient: Instructions located in the after visit summary. Patient given verbal and written preop instructions and voices comprehension and compliance. SIGNATURE: John Li APRN.CNP PATIENT NAME: Jennifer Gleason DATE: October 04, 2023 TIME: 10:25 AM PAGER/CONTACT #: T [facility] 10-04-2023 History and physical note HISTORY AND PHYSICAL EXAMINATION SERVICE DATE: 10/04/2023 SERVICE TIME: 10:25 AM PRIMARY CARE PHYSICIAN: Erasto Smith MD Assessment Patient has the following medical conditions which may affect lyudmila-operative course: Obstructive sleep apnea syndrome in adult Reports CPAP compliance HTN (hypertension) Managed with hydroCHLOROthiazide BP this visit 62851 Denies SOB, dizziness, lightheadedness, palpitations, syncope and chest pain Depression Managed with FLUoxetine (PROZAC) Stable and controlled Followed by PCP Anxiety Managed with FLUoxetine (PROZAC) Stable and controlled Followed by PCP Diabetes mellitus (HCC) Managed with states AGA holding for surgery last dose taken 09/16/23 Followed by PCP A1C ordered [place] Activity Status Index: METS: Walk indoors, such as around the house (1.75 METs) Do light work around the house, such as dusting or washing dishes (2.70 METs) Take care of self; that is eating, dressing, bathing, using the toilet (2.75 METs) Walk a block or two on level ground (2.75 METs) Do moderate work around the house, such as vacuuming, sweeping floors, or carrying in groceries (3.50 METs) Climb a flight of stairs or walk up a hill (5.50 METs) Do heavy work around the house, such as scrubbing floors, lifting or moving heavy furniture (8.00 METs) DASI Score: 26.95 Patient denies any chest pain or undue shortness of breath with the above physical activity. Clinical Frailty Scale: 3. Well, with treated comorbid disease STOP-Bang Score: BMI greater than 35 kg/m^2 Has a large neck Denies snoring loudly Denies feeling tired, fatigued, or sleepy during the daytime Has not been observed to stop breathing or choking/gasping during sleep Denies having high blood pressure Patient 50 years old or younger STOP-Bang Score: 2 (Reports CPAP compliance ) [id number] Score: Age: <65 Sex: female Hypertension history: Yes Diabetes history: Yes [id number] Score: ARISCAT Score: Age: <=50 Preoperative SpO2: >=96% Preoperative anemia: Yes Duration of surgery: >3 hrs Emergency procedure: No ARISCAT Score: ANESTHESIA FINDINGS: Intubation History: No abnormal airway history Significant Anesthesia Considerations: none Airway History: No abnormal airway history I - PHYSICAL EVALUATION AIRWAY Patient intubated: No. Tracheostomy tube not present Mallampati: II. TM distance: >3 FB. Neck ROM: full ROM without neurological symptoms. Mouth opening: adequate. Short neck: yes. Thick neck: yes Sen present: no Lip Bite Test: I DENTAL Dental findings: teeth intact. Additional comments: Braces upper and lower. II -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 bloodpressure monitor will be placed directly against the skin of your upper arm at the level of your heart. It should be measured at least twice using the same arm. Certain conditions can cause a difference in blood pressure between your right and left arms. Certain factors can cause blood pressure readings to be lower or higher than normal for a short period of time: When your blood pressure is higher when you are in a health care provider's office than when you are at home, this is called white coat hypertension. Most people with this condition do not need medicines. When your blood pressure is higher at home than when you are in a health care provider's office, this is called masked hypertension. Most people with this condition may need medicines to control blood pressure. If you have a high blood pressure reading during one visit or you have normal blood pressure with other risk factors, you may be asked to: Return on a different day to have your blood pressure checked again. Monitor your blood pressure at home for 1 week or longer. If you are diagnosed with hypertension, you may have other blood or imaging tests to help your health care provider understand your overall risk for other conditions. How is this treated? This condition is treated by making healthy lifestyle changes, such as eating healthy foods, exercising more, and reducing your alcohol intake. Your health care provider may prescribe medicine if lifestyle changes are not enough to get your blood pressure under control, and if: Your systolic blood pressure is above 130. Your diastolic blood pressure is above 80. Your personal target blood pressure may vary depending on your medical conditions, your age, and other factors. Follow these instructions at home: Eating and drinking Eat a diet that is high in fiber and potassium, and low in sodium, added sugar, and fat. An exampleeating plan is called the DASH (Dietary Approaches to Stop Hypertension) diet. To eat this way: ?Eat plenty of fresh fruits and vegetables. Try to fill one half of your plate at each meal with fruits and vegetables. ?Eat whole grains, such as whole-wheat pasta, brown rice, or whole-grain bread. Fill about one fourth of your plate with whole grains. ?Eat or drink low-fat dairy products, such as skim milk or low-fat yogurt. ?Avoid fatty cuts of meat, processed or cured meats, and poultry with skin. Fill about one fourth of your plate with lean proteins, such as fish, chicken without skin, beans, eggs, or tofu. ?Avoid pre-made and processed foods. These tend to be higher in sodium, added sugar, and fat. Reduce your daily sodium intake. Most people with hypertension should eat less than 1,500 mg of sodium a day. Do not drink alcohol if: ?Your health care provider tells you not to drink. ?You are , may be , or are planning to become . If you drink alcohol: ?Limit how much you use to: ?0 1 drink a day for women. ?0 2 drinks a day for men. ?Be aware of how much alcohol is in your drink. In the [place] one drink equals one 12 oz bottle of beer (355 mL), one 5 oz glass of wine (148 mL), or one 1 oz glass of hard liquor (44 mL). Lifestyle Work with your health care provider to maintain a healthy body weight or to lose weight. Ask what an ideal weight is for you. Get at least 30 minutes of exercise most days of the week. Activities may include walking, swimming, or biking. Include exercise to strengthen your muscles (resistance exercise), such as Pilates or lifting weights, as part of your weekly exercise routine. Try to do these types of exercises for 30 minutes at least 3 days a week. Do not use any products that contain nicotine or tobacco, such as cigarettes, e- cigarettes, and chewing tobacco. If you need help quitting, ask your health care provider. Monitor your blood pressure at home as told by your health care provider. Keep all follow-up visits as told by your health care provider. This is important. Medicines Take agzg-hye-[id number] and prescription medicines only as told by your health care provider. Follow directions carefully. Blood pressure medicines must be taken as prescribed. Do not skip doses of blood pressure medicine. Doing this puts you at risk for problems and can makethe medicine less effective. Ask your health care provider about side effects or reactions to medicines that you should watch for. Contact a health care provider if you: Think you are having a reaction to a medicine you are taking. Have headaches that keep coming back (recurring). Feel dizzy. Have swelling in your ankles. Have trouble with your vision. Get help right away if you: Develop a severe headache or confusion. Have unusual weakness or numbness. Feel faint. Have severe pain in your chest or abdomen. Vomit repeatedly. Have trouble breathing. Summary Hypertension is when the force of blood pumping through your arteries is too strong. If this condition is not controlled, it may put you at risk for serious complications. Your personal target blood pressure may vary depending on your medical conditions, your age, and other factors. For most people, a normal blood pressure is less than 120/80. Hypertension is treated with lifestyle changes, medicines, or a combination of both. Lifestyle changes include losing weight, eating a healthy, low-sodium diet, exercising more, and limiting alcohol. This information is not intended to replace advice given to you by your health care provider. Make sure you discuss any questions you have with your health care provider. Document Released: 04/08/2006 Document Revised: 12/17/2018 Document Reviewed: 12/17/2018 [employer] Patient Education 2020 [email or web address]. 01/08/2022 11:17:38 Generalized Anxiety Disorder, Pediatric Generalized Anxiety Disorder, Pediatric Generalized anxiety disorder (JESSICA) is a mental health disorder. Children with this condition constantly worry about everyday events. Unlike normal anxiety, worry related to JESSICA is not triggered by a specific event. These worries also do not fade or get better with time. The condition can affect thechild's school performance and his or her ability to participate in some activities. Children with JESSICA may take studying or practicing to an extreme. JESSICA can vary from mild to severe. Children with severe JESSICA can have intense waves of anxiety with physical symptoms (panic attacks). JESSICA affects children and teens, and it often begins in childhood. What are the causes? The exact cause of JESSICA is not known. What increases the risk? This condition is more likely to develop in: Girls. Children who have a family history of anxiety disorders. Children who are shy. Children who experience very stressful life events, such as the of a parent. Children who have a very stressful family environment. What are the signs or symptoms? Children with JESSICA often worry excessively about many things in their lives, such as their health and family. They may also be overly concerned about: Academic performance. Doing well in sports. Being on time. Natural disasters. Friendships. Physical symptoms of JESSICA include: Fatigue. Muscle tension or having muscle twitches. Trembling or feeling shaky. Being easily startled. Heart pounding or racing. Feeling out of breath or not being able to take a deep breath. Having trouble falling asleep or staying asleep. Sweating. Nausea, diarrhea, or irritable bowel syndrome (IBS). Headaches. Trouble concentrating or remembering facts. Restlessness. Irritability. How is this diagnosed? Your child's health care provider can diagnose JESSICA based on your child's symptoms and medical history. Your child will also have a physical exam. The health care provider will ask specific questions about your child's symptoms, including how severe they are, when they started, and if they come and go. Your child s health care provider may refer your child to a mental health specialist for furtherevaluation. To be diagnosed with JESSICA, children must have anxiety that: Is out of their control. Affects several different aspects of their life, such as school, sports, and relationships. Causes distress that makes them unable to take part in normal activities. Includes at least one physical symptom of JESSICA, such as fatigue, trouble concentrating, restlessness, irritability, muscle tension, or sleep problems. Before your child's health care provider can confirm a diagnosis of JESSICA, these symptoms must be present in your child more days than they are not, and they must last for six months or longer. How is this treated? Treatment may include: Medicine. Antidepressant medicine is usually prescribed for long-term daily control. Antianxiety medicines may be added in severe cases, especially when panic attacks occur. Talk therapy (psychotherapy). Certain types of talk therapy can be helpful in treating JESSICA by providing support, education, and guidance. Options include: ?Cognitive behavioral therapy (CBT). Children learn coping skills and techniques to ease their anxiety. Children learn to identify unrealistic or negative thoughts and behaviors and to replace them with positive ones. ?Acceptance and commitment therapy (ACT). This treatment teaches children how to be mindful as a way to cope with unwanted thoughts and feelings. ?Biofeedback. This process trains children to manage their body's response (physiological response)through breathing techniques and relaxation methods. Children work with a therapist while machines are used to monitor their physical symptoms. Stress management techniques. These include yoga, meditation, and exercise. A mental health specialist can help determine which treatment is best for your child. Some childrensee improvement with one type of therapy. However, other children require a combination of therapies. Follow these instructions at home: Stress management Have your child practice any stress management or self-calming techniques as taught by your child [facility] care provider. Anticipate stressful situations and allow extra time to manage them. Try to maintain a normal routine. Stay calm when your child becomes anxious. General instructions Listen to your child s feelings and acknowledge his or her anxiety. Try to be a role model for coping with anxiety in a healthy way. This can help your child learn to do the same. Recognize your child s accomplishments, even if they are small. Do not punish your child for setbacks or for not making progress. Keep all follow-up visits as told by your child s health care provider. This is important. Give your child iivv-uui-yaqbffp and prescription medicines only as told by the child's health careprovider. Contact a health care provider if: Your child s symptoms do not get better. Your child's symptoms get worse. Your child has signs of depression, such as: ?A persistently sad, cranky, or irritable mood. ?Loss of enjoyment in activities that used to bring him or her abimbola. ?Change in weight or eating. ?Changes in sleeping habits. ?Avoiding friends or family members. ?Loss of energy for normal tasks. ?Feelings of guilt or worthlessness. Get help right away if: Your child has serious thoughts about hurting him or herself or others. If your child has serious thoughts about hurting himself or herself or others, or has thoughts about taking his or her own life, get help right away. You can take your child to the nearest emergency department or call: Your local emergency services (911 in the [place] A suicide crisis helpline, such as the National Suicide Prevention Lifeline at . Thisis open 24 hours a day. Summary Generalized anxiety disorder (JESSICA) is a mental health disorder that involves worry that is not triggered by a specific event. Children with JESSICA often worry excessively about many things in their lives, such as their health and family. JESSICA may cause physical symptoms such as restlessness, trouble concentrating, sleep problems, frequent sweating, nausea, diarrhea, headaches, and trembling or muscle twitching. A mental health specialist can help determine which treatment is best for your child. Some childrensee improvement with one type of therapy. However, other children require a combination of therapies. This information is not intended to replace advice given to you by your health care provider. Make sure you discuss any questions you have with your health care provider. Document Released: 02/26/2017 Document Revised: 03/21/2018 Document Reviewed: 02/26/2017 [employer] Patient Education 2020 [email or web address] 01/08/2022 11:06:12 Generalized Anxiety Disorder, Pediatric Generalized Anxiety Disorder, Pediatric Generalized anxiety disorder (JESSICA) is a mental health disorder. Children with this condition constantly worry about everyday events. Unlike normal anxiety, worry related to JESSICA is not triggered by a specific event. These worries also do not fade or get better with time. The condition can affect thechild's school performance and his or her ability to participate in some activities. Children with JESSICA may take studying or practicing to an extreme. JESSICA can vary from mild to severe. Children with severe JESSICA can have intense waves of anxiety with physical symptoms (panic attacks). JESSICA affects children and teens, and it often begins in childhood. What are the causes? The exact cause of JESSICA is not known. What increases the risk? This condition is more likely to develop in: Girls. Children who have a family history of anxiety disorders. Children who are shy. Children who experience very stressful life events, such as the of a parent. Children who have a very stressful family environment. What are the signs or symptoms? Children with JESSICA often worry excessively about many things in their lives, such as their health and family. They may also be overly concerned about: Academic performance. Doing well in sports. Being on time. Natural disasters. Friendships. Physical symptoms of JESSICA include: Fatigue. Muscle tension or having muscle twitches. Trembling or feeling shaky. Being easily startled. Heart pounding or racing. Feeling out of breath or not being able to take a deep breath. Having trouble falling asleep or staying asleep. Sweating. Nausea, diarrhea, or irritable bowel syndrome (IBS). Headaches. Trouble concentrating or remembering facts. Restlessness. Irritability. How is this diagnosed? Your child's health care provider can diagnose JESSICA based on your child's symptoms and medical history. Your child will also have a physical exam. The health care provider will ask specific questions about your child's symptoms, including how severe they are, when they started, and if they come and go. Your child s health care provider may refer your child to a mental health specialist for furtherevaluation. To be diagnosed with JESSICA, children must have anxiety that: Is out of their control. Affects several different aspects of their life, such as school, sports, and relationships. Causes distress that makes them unable to take part in normal activities. Includes at least one physical symptom of JESSICA, such as fatigue, trouble concentrating, restlessness, irritability, muscle tension, or sleep problems. Before your child's health care provider can confirm a diagnosis of JESSICA, these symptoms must be present in your child more days than they are not, and they must last for six months or longer. How is this treated? Treatment may include: Medicine. Antidepressant medicine is usually prescribed for long-term daily control. Antianxiety medicines may be added in severe cases, especially when panic attacks occur. Talk therapy (psychotherapy). Certain types of talk therapy can be helpful in treating JESSICA by providing support, education, and guidance. Options include: ?Cognitive behavioral therapy (CBT). Children learn coping skills and techniques to ease their anxiety. Children learn to identify unrealistic or negative thoughts and behaviors and to replace them with positive ones. ?Acceptance and commitment therapy (ACT). This treatment teaches children how to be mindful as a way to cope with unwanted thoughts and feelings. ?Biofeedback. This process trains children to manage their body's response (physiological response)through breathing techniques and relaxation methods. Children work with a therapist while machines are used to monitor their physical symptoms. Stress management techniques. These include yoga, meditation, and exercise. A mental health specialist can help determine which treatment is best for your child. Some childrensee improvement with one type of therapy. However, other children require a combination of therapies. Follow these instructions at home: Stress management Have your child practice any stress management or self-calming techniques as taught by your child shealth care provider. Anticipate stressful situations and allow extra time to manage them. Try to maintain a normal routine. Stay calm when your child becomes anxious. General instructions Listen to your child s feelings and acknowledge his or her anxiety. Try to be a role model for coping with anxiety in a healthy way. This can help your child learn to do the same. Recognize your child s accomplishments, even if they are small. Do not punish your child for setbacks or for not making progress. Keep all follow-up visits as told by your child s health care provider. This is important. Give your child ynnv-fpr-bozxdpt and prescription medicines only as told by the child's health careprovider. Contact a health care provider if: Your child s symptoms do not get better. Your child's symptoms get worse. Your child has signs of depression, such as: ?A persistently sad, cranky, or irritable mood. ?Loss of enjoyment in activities that used to bring him or her abimbola. ?Change in weight or eating. ?Changes in sleeping habits. ?Avoiding friends or family members. ?Loss of energy for normal tasks. ?Feelings of guilt or worthlessness. Get help right away if: Your child has serious thoughts about hurting him or herself or others. If your child has serious thoughts about hurting himself or herself or others, or has thoughts about taking his or her own life, get help right away. You can take your child to the nearest emergency department or call: Your local emergency services (911 in the [place] A suicide crisis helpline, such as the National Suicide Prevention Lifeline at . Thisis open 24 hours a day. Summary Generalized anxiety disorder (JESSICA) is a mental health disorder that involves worry that is not triggered by a specific event. Children with JESSICA often worry excessively about many things in their lives, such as their health and family. JESSICA may cause physical symptoms such as restlessness, trouble concentrating, sleep problems, frequent sweating, nausea, diarrhea, headaches, and trembling or muscle twitching. A mental health specialist can help determine which treatment is best for your child. Some childrensee improvement with one type of therapy. However, other children require a combination of therapies. This information is not intended to replace advice given to you by your health care provider. Make sure you discuss any questions you have with your health care provider. Document Released: 02/26/2017 Document Revised: 03/21/2018 Document Reviewed: 02/26/2017 [employer] Patient Education 2020 [email or web address]. 01/08/2022 11:06:10 Blood Glucose Monitoring, Adult Blood Glucose Monitoring, Adult Monitoring your blood sugar (glucose) is an important part of managing your diabetes (diabetes mellitus). Blood glucose monitoring involves checking your blood glucose as often as directed and keeping a record (log) of your results over time. Checking your blood glucose regularly and keeping a blood glucose log can: Help you and your health care provider adjust your diabetes management plan as needed, including your medicines or insulin. Help you understand how food, exercise, illnesses, and medicines affect your blood glucose. Let you know what your blood glucose is at any time. You can quickly find out if you have low bloodglucose (hypoglycemia) or high blood glucose (hyperglycemia). Your health care provider will set individualized treatment goals for you. Your goals will be basedon your age, other medical conditions you have, and how you respond to diabetes treatment. Generally, the goal of treatment is to maintain the following blood glucose levels: Before meals (preprandial): 80 130 mg/dL (4.4 7.2 mmol/L). After meals (postprandial): below 180 mg/dL (10 mmol/L). A1c level: less than 7%. Supplies needed: Blood glucose meter. Test strips for your meter. Each meter has its own strips. You must use the strips that came with your meter. A needle to prick your finger (lancet). Do not use a lancet more than one time. A device that holds the lancet (lancing device). A journal or log book to write down your results. How to check your blood glucose 1.Wash your hands with soap and water. 2.Prick the side of your finger (not the tip) with the lancet. Use a different finger each time. 3.Gently rub the finger until a small drop of blood appears. 4.Follow instructions that come with your meter for inserting the test strip, applying blood to thestrip, and using your blood glucose meter. 5.Write down your result and any notes. Some meters allow you to use areas of your body other than your finger (alternative sites) to test your blood. The most common alternative sites are: Forearm. Thigh. Palm of the hand. If you think you may have hypoglycemia, or if you have a history of not knowing when your blood glucose is getting low (hypoglycemia unawareness), do not use alternative sites. Use your finger instead. Alternative sites may not be as accurate as the fingers, because blood flow is slower in these areas. This means that the result you get may be delayed, and it may be different from the result thatyou would get from your finger. Follow these instructions at home: Blood glucose log Every time you check your blood glucose, write down your result. Also write down any notes about things that may be affecting your blood glucose, such as your diet and exercise for the day. This information can help you and your health care provider: ?Look for patterns in your blood glucose over time. ?Adjust your diabetes management plan as needed. Check if your meter allows you to download your records to a computer. Most glucose meters store a record of glucose readings in the meter. If you have type 1 diabetes: Check your blood glucose 2 or more times a day. Also check your blood glucose: ?Before every insulin injection. ?Before and after exercise. ?Before meals. ?2 hours after a meal. ?Occasionally between 2:00 a.m. and 3:00 a.m., as directed. ?Before potentially dangerous tasks, like driving or using heavy machinery. ?At bedtime. You may need to check your blood glucose more often, up to 6 10 times a day, if you: ?Use an insulin pump. ?Need multiple daily injections (MDI). ?Have diabetes that is not well-controlled. ?Are ill. ?Have a history of severe hypoglycemia. ?Have hypoglycemia unawareness. If you have type 2 diabetes: If you take insulin or other diabetes medicines, check your blood glucose 2 or more times a day. If you are on intensive insulin therapy, check your blood glucose 4 or more times a day. Occasionally, you may also need to check between 2:00 a.m. and 3:00 a.m., as directed. Also check your blood glucose: ?Before and after exercise. ?Before potentially dangerous tasks, like driving or using heavy machinery. You may need to check your blood glucose more often if: ?Your medicine is being adjusted. ?Your diabetes is not well-controlled. ?You are ill. General tips Always keep your supplies with you. If you have questions or need help, all blood glucose meters have a 24-hour hotline phone number that you can call. You may also contact your health care provider. After you use a few boxes of test strips, adjust (calibrate) your blood glucose meter by following instructions that came with your meter. Contact a health care provider if: Your blood glucose is at or above 240 mg/dL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 Radiology exam, 1 dose, Starting on 09/02/22 at 0755, Until 09/02/22 at 0755, Imaging Protocol Orders [id number] (Given - Provid er: Simran Main) Source Comments (unrecognize d section and content) In the event this informatio n is protected by the Federal Confidentiality of Alcohol and Drug Abuse Patient Records regulations: The Federal rules restrict any use of the information to criminally investigate or prosecute any alcohol or drug abuse patient.[facility] the event this information is protected by the Federal Confidentiality of Alcohol and Drug Abuse Patient Records regulations: The Federal rules restrict any use of the information to criminally investigate or prosecute any alcohol or drug abuse patient.[facility] the event this information is protected by the Federal Confidentiality of Alcohol and Drug Abuse Patient Records regulations: The Federal rules restrict any use of the information to criminally investigate or prosecute any alcohol or drug abuse patient.[facility] the event this information is protected by the Federal Confidentiality of Alcohol and Drug Abuse Patient Records regulations: The Federal rules restrict any use of the information to criminally investigate or prosecute any alcohol or drug abuse patient.[facility] the event this information is protected by the Federal Confidentiality of Alcohol and Drug Abuse Patient Records regulations: The Federal rules restrict any use of the information to criminally investigate or prosecute any alcohol or drug abuse patient.[facility] the event this information is protected by the Federal Confidentiality of Alcohol and Drug Abuse Patient Records regulations: The Federal rules restrict any use of the information to criminally investigate or prosecute any alcohol or drug abuse patient.[facility] the event this information is protected by the Federal Confidentiality of Alcohol and Drug Abuse Patient Records regulations: The Federal rules restrict any use of the information to criminally investigate or prosecute any alcohol or drug abuse patient.[facility] the event this information is protected by the Federal Confidentiality of Alcohol and Drug Abuse Patient Records regulations: The Federal rules restrict any use of the information to criminally investigate or prosecute any alcohol or drug abuse patient.[facility] the event this information is protected by the Federal Confidentiality of Alcohol and Drug Abuse Patient Records regulations: The Federal rules restrict any use of the information to criminally investigate or prosecute any alcohol or drug abuse patient.[facility] the event this information is protected by the Federal Confidentiality of Alcohol and Drug Abuse Patient Records regulations: The Federal rules restrict any use of the information to criminally investigate or prosecute any alcohol or drug abuse patient.[facility] FOR RECORDS PERTAINING TO PATIENTS WHO ARE OR HAVE BEEN ENROLLED IN A CHEMICAL DEPENDENCY/SUBSTANCEABUSE PROGRAM, SOME INFORMATION MAY BE OMITTED. This clinical summary was aggregated from multiple sources. Caution should be exercised in using it in the provision of clinical care. This summary normalizes information from multiple sources, and as a consequence, information in this document may materially change the coding, format and clinical context of patient data. In addition, data may be omitted in some cases. CLINICAL DECISIONS SHOULD BE BASED ON THE PRIMARY CLINICAL RECORDS. [facility] [employer] [facility]. provides no warranty or guarantee of the accuracy or completeness of information in this document.
== END 2025-02-03 19:28 | disposition home or self-care (01) ==
LOC: LAB 19:27
PROVIDERS: Visit Provider Obstetrics & Gynecology
DX: Z01.419 Encounter for gynecological examination (general) (routine) without abnormal findings (principal)
CPT/HCPCS: 87624; 88175